=== PATIENT | female | born 1965 | race Caucasian/White ===

== ENCOUNTER 2017-07-13 14:09 | Emergency (ER) | payer MEDICAID ==
[~2017-07-13] VITALS: Ht 167.6 cm; Wt 88.5 kg
[~2017-07-13 14:09] MED LIST: AMOX-426 PO; ERGO500043 PO; FAMO40TA7 PO; GABA-531 PO; LISI-600 PO; TRAM50TA92 PO; ZOLP5TAB2 PO
[2017-07-13 14:18] VITALS: BP_SYST 147
[2017-07-13 16:51] LABS: BASOPHILS # (AUTO) 0.1 K/uL (0.0-0.2); EOSINOPHILS # (AUTO) 0.1 K/uL (0.0-0.4); EOSINOPHILS % (AUTO) 0.9 % (0.0-4.0); HEMATOCRIT 40.8 % (36-48); HEMOGLOBIN 13.2 g/dL (12.0-16.0); LYMPHOCYTES # (AUTO) 2.5 K/uL (1.0-5.5); LYMPHOCYTES % (AUTO) 24.3 % (20.5-51.5); MEAN CORPUSCULAR HEMOGLOBIN 28 pg (27-31); MEAN CORPUSCULAR HGB CONC 32 % (32-36); MEAN CORPUSCULAR VOLUME 85 fL (79.0-98.0); MONOCYTES # (AUTO) 0.6 K/uL (0.0-1.0); MONOCYTES % (AUTO) 5.4 % (1.7-9.3); NEUTROPHILS # (AUTO) 6.9 K/uL (1.8-7.7); NEUTROPHILS % (AUTO) 68.4 % (40.0-70.0); PLATELET COUNT (AUTO) 286 K/uL (130-430); RED CELL DISTRIBUTION WIDTH 13.3 % (9.0-15.0); WHITE BLOOD COUNT (AUTO) 10.2 K/uL (4.8-10.8)
[2017-07-13] MEDS ORDERED: NACL 0.9% 1,000 ML IV ONE (17:15)
[2017-07-13 17:16] LABS: CALCIUM 9.3 mg/dL (8.4-11.0); CREATININE 0.86 mg/dL (0.55-1.30); POTASSIUM 3.7 mmol/L (3.5-5.1)
[2017-07-13 17:20] LABS: ALBUMIN 3.8 g/dL (3.4-4.8); TOTAL BILIRUBIN 0.3 mg/dL (0.0-1.0)
[2017-07-13 17:25] LABS: BILIRUBIN,URINE 1+ (NEGATIVE); BLOOD, URINE 1+ (NEGATIVE); CLARITY/URINE SL CLOUDY (CLEAR); COLOR,URINE YELLOW (YELLOW); GLUCOSE,URINE NEGATIVE (NEGATIVE); KETONES,URINE TRACE (NEGATIVE); LEUKOCYTE ESTERASE ,URINE NEGATIVE (NEGATIVE); NITRITE, URINE NEGATIVE (NEGATIVE); PROTEIN URINE NEGATIVE (NEGATIVE); UROBILINOGEN,URINE 0.2 (0.2-1.0)
[2017-07-13 18:00] LABS: BACTERIA,URINE FEW /HPF (None Seen); CALCIUM OXALATE CRYSTALS,UR 0-10 /HPF (None Seen); MUCUS,URINE 2+ /LPF (None Seen); RBC,URINE 0-3 /HPF (0-3); WBC,URINE 0-3 /HPF (0-3)
[2017-07-13] MEDS ORDERED: MAG HYDROX/AL HYDROX/SIMETH 30 ML, BELLADONNA ALKALOIDS/PHENOBARB 10 ML, LIDOCAINE VISC... PO ONE ×3 (18:45)
[2017-07-13 19:09] VITALS: BP_SYST 148
== END 2017-07-13 19:09 | disposition home or self-care (01) ==
LOC: SED 14:09
DX: D25.9 Leiomyoma of uterus, unspecified (principal); K21.9 Gastro-esophageal reflux disease without esophagitis
CPT/HCPCS: 36415; 74176; 76856; 80053; 81000; 83690; 85025; 96360; 99285; J2001; J7030

== ENCOUNTER 2017-10-31 13:23 | Emergency (ER) | payer MEDICAID ==
[~2017-10-31] VITALS: Ht 175.3 cm; Wt 87.5 kg
[2017-10-31 13:52] VITALS: BP_SYST 166
[2017-10-31] MEDS: PROMETHAZINE 6.25 MG/ CODEINE 10 MG/ 5 ML PO ONE (15:24)
[2017-10-31] MEDS: ACETAMINOPHEN 500 MG TABLET PO ONE (15:27)
[2017-10-31] MEDS: ALBUTEROL SULFATE 0.083% 2.5 MG/3 ML VIAL.NEB INH ONE (16:06)
[2017-10-31 16:35] VITALS: BP_SYST 148
== END 2017-10-31 16:35 | disposition home or self-care (01) ==
LOC: SED 13:23
DX: J21.9 Acute bronchiolitis, unspecified (principal); K21.9 Gastro-esophageal reflux disease without esophagitis; Z79.899 Other long term (current) drug therapy
CPT/HCPCS: 94640; 99283

== ENCOUNTER 2019-02-01 20:39 | Emergency (ER) | payer MEDICAID ==
[~2019-02-01] VITALS: Ht 175.3 cm; Wt 95.3 kg
[~2019-02-01 20:39] MED LIST changes: +ERGO500020 PO; -ERGO500043 PO
[2019-02-01 20:57] VITALS: BP_SYST 127
--- NOTE | 2019-02-01 21:02 | NUR ---
Pt placed to ER waiting room in stable condition.
--- NOTE | 2019-02-01 21:19 | NUR ---
Patient to ER bed [address] to gown for evaluation. Side rails up. Report given to COY EUCEDA.
--- NOTE | 2019-02-01 21:40 | NUR ---
Pt brought by self ,A&Ox4, pt presents to ER with cough and congestion, also c/o dizziness for one month, skin pink and warm, ambulatory, cap refill <2 seconds.
--- NOTE | 2019-02-01 21:41 | NUR ---
ER at bedside examining patient.
[2019-02-01 22:15] VITALS: BP_SYST 127
--- NOTE | 2019-02-01 22:19 | NUR ---
Patient given written and verbal discharge instructions and verbalizes understanding. ER MD discussed with patient the results and treatment provided. Patient in stable condition. ID arm band removed. Rx of Promethazine ,Medrol,Augmentin given. Patient educated on pain management and to follow up with PMD. Pain Scale 3/10 tolerable for patient . Opportunity for questions provided and answered. Medication side effect fact sheet provided.
== END 2019-02-01 22:15 | disposition home or self-care (01) ==
LOC: SED 20:39
DX: J20.9 Acute bronchitis, unspecified (principal); K21.9 Gastro-esophageal reflux disease without esophagitis; Z79.899 Other long term (current) drug therapy
CPT/HCPCS: 71045; 99283